=== PATIENT | female | born 1970 | race Caucasian/White ===

== ENCOUNTER 2016-09-06 13:54 | Emergency (ER) | payer OTHER ==
[~2016-09-06 13:54] MED LIST: BACTROBAN OINT22 GM; IBUPROFEN800 MG PO; KEPPRA 500 MG500 MG PO; KEPPRA500 MG PO; NEURONTIN 300300 MG PO; SUBOXONE 8 MG-1 EACH PO
[2016-09-06 14:44] LABS: HEMOGLOBIN 13.7 gm/dl (12.3-15.3); RED BLOOD COUNT 4.77 M/UL (4.00-5.10); WHITE BLOOD COUNT 11.1 K/UL (4.5-11.0)
[2016-09-06 15:14] LABS: BUN/CREATININE RATIO 15 (0-10)
== END 2016-09-06 16:10 | disposition home or self-care (01) ==
LOC: ER1 13:54
PROVIDERS: Physician Assistant Medical
DX: L03.211 Cellulitis of face (principal); G40.909 Epilepsy, unspecified, not intractable, without status epilepticus; Z79.899 Other long term (current) drug therapy
CPT/HCPCS: 36415; 70487; 80053; 85025; 87040; 99284; J7050; Q9962

== ENCOUNTER 2016-09-19 20:22 | Emergency (ER) | payer OTHER | END 2016-09-20 00:45 | disposition home or self-care (01) | LOC: ER1 20:22 | DX: L02.01 Cutaneous abscess of face (principal); L03.211 Cellulitis of face | CPT/HCPCS: 10060; 96374; 99283; J0875 ==

== ENCOUNTER 2016-10-29 15:53 | Emergency (ER) | payer OTHER | END 2016-10-29 18:48 | disposition left against medical advice (07) | LOC: ER1 15:53 | DX: Z53.21 Procedure and treatment not carried out due to patient leaving prior to being seen by health care provider (principal) ==

== ENCOUNTER 2020-12-22 19:02 | Emergency (ER) | payer OTHER ==
[~2020-12-22 19:02] MED LIST changes: +BACTRIM DS TAB1 EACH PO; +CELEBREX200 MG PO
[2020-12-22 20:20] LABS: HEMOGLOBIN 12.5 gm/dl (12.3-15.3); RED BLOOD COUNT 4.42 M/UL (4.00-5.10); WHITE BLOOD COUNT 10.2 K/UL (4.5-11.0)
[2020-12-22 20:42] LABS: BUN/CREATININE RATIO 18 (0-10)
[2020-12-22] MEDS ORDERED: IBUPROFEN600 MG PO (22:52)
[2020-12-22] MEDS ORDERED: PROTONIX40 MG PO (22:52)
[2020-12-22] MEDS ORDERED: CEPHALEXIN500 M1 PO (22:52)
[2020-12-22] MEDS ORDERED: BACTRIM DS TAB1 EACH PO (22:52)
[2020-12-22] MEDS ORDERED: ZOFRAN ODT 4 MG4 MG SL (22:52)
== END 2020-12-22 23:24 | disposition home or self-care (01) ==
LOC: ER1 19:02
PROVIDERS: Emergency Medicine
DX: K86.89 Other specified diseases of pancreas (principal); L03.116 Cellulitis of left lower limb; L03.115 Cellulitis of right lower limb
CPT/HCPCS: 80053; 83605; 83690; 83880; 84703; 85025; 93005; 96365; 96375; 99284; J1885; J2405; Q9967

== ENCOUNTER → 2021-01-17 | Outpatient (CLI) | payer OTHER ==
[~2021-01-17] MED LIST changes: +CEPHALEXIN500 M1 PO; +DOXYCYCLINE HY100 MG PO; +IBUPROFEN600 MG PO; +OMEPRAZOLE40 MG PO; +PROTONIX40 MG PO; +TESSALON PERLE100 MG PO; +ZOFRAN ODT 4 MG4 MG SL
== END ==
LOC: LAB 15:20
DX: K80.10 Calculus of gallbladder with chronic cholecystitis without obstruction (principal)
CPT/HCPCS: 80076

== ENCOUNTER 2021-02-25 02:21 | Emergency (ER) | payer OTHER ==
[~2021-02-25 02:21] MED LIST changes: -DOXYCYCLINE HY100 MG PO; -OMEPRAZOLE40 MG PO; -TESSALON PERLE100 MG PO
[2021-02-25 04:36] LABS: HEMOGLOBIN 11.1 gm/dl (12.3-15.3); RED BLOOD COUNT 4.09 M/UL (4.00-5.10); WHITE BLOOD COUNT 5.8 K/UL (4.5-11.0)
[2021-02-25 05:10] LABS: BUN/CREATININE RATIO 16 (0-10)
[2021-02-25] MEDS ORDERED: DOXYCYCLINE HY100 MG PO (10:15)
[2021-02-25] MEDS ORDERED: TESSALON PERLE100 MG PO (10:15)
[2021-02-25] MEDS ORDERED: OMEPRAZOLE40 MG PO (10:15)
== END 2021-02-25 10:34 | disposition home or self-care (01) ==
LOC: ER1 02:21
PROVIDERS: Emergency Medicine
DX: U07.1 COVID-19 (principal); J12.82 Pneumonia due to coronavirus disease 2019; K21.00 Gastro-esophageal reflux disease with esophagitis, without bleeding
CPT/HCPCS: 71045; 80053; 82550; 82553; 83605; 83690; 83735; 83874; 83880; 84484; 84703; 85025; 85379; 87040; 93005; 94664; 96365; 99285; J7030; Q9967; U0002

== ENCOUNTER 2021-03-11 17:13 | Emergency (ER) | payer OTHER ==
[~2021-03-11 17:13] MED LIST changes: +DOXYCYCLINE HY100 MG PO; +OMEPRAZOLE40 MG PO; +TESSALON PERLE100 MG PO
[2021-03-11 18:38] LABS: HEMOGLOBIN 12.3 gm/dl (12.3-15.3); RED BLOOD COUNT 4.41 M/UL (4.00-5.10); WHITE BLOOD COUNT 9.4 K/UL (4.5-11.0)
[2021-03-11 19:00] LABS: BUN/CREATININE RATIO 19 (0-10)
== END 2021-03-11 20:08 | disposition home or self-care (01) ==
LOC: ER1 17:13
PROVIDERS: Physician Assistant
DX: N20.0 Calculus of kidney (principal); K57.30 Diverticulosis of large intestine without perforation or abscess without bleeding; D25.9 Leiomyoma of uterus, unspecified; N83.202 Unspecified ovarian cyst, left side; Z86.16 Personal history of COVID-19
CPT/HCPCS: 80053; 82150; 83690; 85025; 96374; 99284; J1885; Q9967

== ENCOUNTER 2021-10-21 05:37 | Emergency (ER) | payer OTHER ==
[2021-10-21 06:45] LABS: HEMOGLOBIN 12.4 gm/dl (12.3-15.3); RED BLOOD COUNT 4.51 M/UL (4.00-5.10); WHITE BLOOD COUNT 8.2 K/UL (4.5-11.0)
[2021-10-21 06:57] LABS: BUN/CREATININE RATIO 22 (0-10)
[2021-10-21] MEDS ORDERED: BACTROBAN OINT22 GM EXT (12:11)
[2021-10-21] MEDS ORDERED: ASPIRIN EC81 MG PO (12:11)
[2021-10-21] MEDS ORDERED: CEPHALEXIN500 M1 PO (12:11)
== END 2021-10-21 12:17 | disposition home or self-care (01) ==
LOC: ER1 05:37
PROVIDERS: Physician Assistant Medical
DX: R07.9 Chest pain, unspecified (principal); L03.116 Cellulitis of left lower limb; L03.115 Cellulitis of right lower limb
CPT/HCPCS: 71045; 80053; 82550; 82553; 83880; 84484; 85025; 85379; 93005; 96374; 96375; 99285; J2270; J2405

== ENCOUNTER 2022-01-15 12:26 | Inpatient (IN) | payer OTHER ==
[~2022-01-15] VITALS: Ht 182.9 cm; Wt 111.2 kg
[~2022-01-15 12:26] MED LIST changes: +ASPIRIN EC81 MG PO; +BACTROBAN OINT22 GM EXT
[2022-01-15 13:47] LABS: RED BLOOD COUNT 4.66 M/UL (4.00-5.10); WHITE BLOOD COUNT 14.5 K/UL (4.5-11.0)
[2022-01-15 14:17] LABS: BUN/CREATININE RATIO 21 (0-10)
[2022-01-16 03:55] LABS: HEMOGLOBIN 12.7 gm/dl (12.3-15.3); RED BLOOD COUNT 4.84 M/UL (4.00-5.10); WHITE BLOOD COUNT 12.6 K/UL (4.5-11.0)
[2022-01-16 04:26] LABS: BUN/CREATININE RATIO 19 (0-10)
[2022-01-17 06:08] LABS: HEMOGLOBIN 12.3 gm/dl (12.3-15.3); RED BLOOD COUNT 4.47 M/UL (4.00-5.10); WHITE BLOOD COUNT 9.8 K/UL (4.5-11.0)
[2022-01-17 06:41] LABS: BUN/CREATININE RATIO 20 (0-10)
[2022-01-18 06:20] LABS: HEMOGLOBIN 12.3 gm/dl (12.3-15.3); RED BLOOD COUNT 4.45 M/UL (4.00-5.10); WHITE BLOOD COUNT 7.9 K/UL (4.5-11.0)
[2022-01-18 07:10] LABS: BUN/CREATININE RATIO 25 (0-10)
[2022-01-18] MEDS ORDERED: OMNICEF 300 MG300 MG PO (17:51)
[2022-01-18] MEDS ORDERED: POLYETHYLENE GL17 GM PO (17:51)
[2022-01-18] MEDS ORDERED: TYLENOL 8 HOUR650 MG PO (17:51)
[2022-01-18] MEDS ORDERED: STIMULANT LAXA1 EACH PO (17:51)
== END 2022-01-18 20:20 | disposition home or self-care (01) | DRG 872 ==
LOC: ER1 12:26 → CDU 17:21 → MED SURG 4 17:21
PROVIDERS: Family Medicine; Internal Medicine; ADMIT Internal Medicine
DX: A41.9 Sepsis, unspecified organism (principal); N30.00 Acute cystitis without hematuria; F11.20 Opioid dependence, uncomplicated; F15.20 Other stimulant dependence, uncomplicated; I10 Essential (primary) hypertension; K59.00 Constipation, unspecified; Z20.822 Contact with and (suspected) exposure to COVID-19; Z83.3 Family history of diabetes mellitus; Z79.899 Other long term (current) drug therapy; Z71.6 Tobacco abuse counseling
CPT/HCPCS: 36415; 74018; 80048; 80053; 80307; 81001; 82550; 82553; 83605; 83690; 83735; 84484; 85025; 85610; 87077; 87086; 87186; 93005; 96372; 96374; 96375; 96376; 99285; J0696; J1650; J2270; J2405; J2704; Q9967; U0002

== ENCOUNTER 2022-03-05 00:24 | Emergency (ER) | payer OTHER ==
[~2022-03-05 00:24] MED LIST changes: +OMNICEF 300 MG300 MG PO; +POLYETHYLENE GL17 GM PO; +STIMULANT LAXA1 EACH PO; +TYLENOL 8 HOUR650 MG PO
[2022-03-05 01:14] LABS: HEMOGLOBIN 12.3 gm/dl (12.3-15.3); RED BLOOD COUNT 4.45 M/UL (4.00-5.10); WHITE BLOOD COUNT 7.6 K/UL (4.5-11.0)
[2022-03-05 01:31] LABS: BUN/CREATININE RATIO 23 (0-10)
[2022-03-05] MEDS ORDERED: CEPHALEXIN500 M1 PO (09:24)
== END 2022-03-05 10:35 | disposition home or self-care (01) ==
LOC: ER1 00:24
PROVIDERS: Emergency Medicine
DX: I87.2 Venous insufficiency (chronic) (peripheral) (principal); L03.116 Cellulitis of left lower limb; L03.115 Cellulitis of right lower limb; I10 Essential (primary) hypertension; F17.200 Nicotine dependence, unspecified, uncomplicated
CPT/HCPCS: 71045; 73590; 80053; 81001; 82550; 82553; 83605; 83735; 84100; 84484; 85025; 86140; 87040; 87086; 93005; 93971; 96374; 99284; J3370